=== PATIENT | female | born 1945 | race Caucasian/White ===

== ENCOUNTER 2016-08-05 13:37 | Outpatient (CLI) | payer OTHER | END 2016-08-05 13:38 | disposition home or self-care (01) | DRG 560 | LOC: CONVCARE 13:37 | PROVIDERS: ATTEND Orthopaedic Surgery | DX: Z47.1 Aftercare following joint replacement surgery (principal); I82.402 Acute embolism and thrombosis of unspecified deep veins of left lower extremity; Z96.651 Presence of right artificial knee joint | CPT/HCPCS: 73560 ==